=== PATIENT | female | born 1960 | race Two or more races ===

== ENCOUNTER → 2016-05-22 | Outpatient (CLI) | payer OTHER ==
--- NOTE | 2016-05-23 09:26 | RADRPT ---
PROCEDURE: XR Knee. CLINICAL INDICATION: Right knee pain. TECHNIQUE: 4 views of the right knee are available for review. COMPARISON: None available FINDINGS: The osseous structures, articular spaces, and surrounding soft tissues of the right knee are all unr emarkable. No acute fracture or dislocation is seen. No radiopaque foreign body is identified. Al ignment is anatomic. IMPRESSION: 1. Unremarkable right knee x-ray series. 2. No acute fracture or dislocation is seen. RPTAT: QQ .Richard Todd MD, MD Date Time Electronically viewed and signed by .Richard Todd MD, MD on 05/23/2016 09:25 .R/
== END | disposition home or self-care (01) ==
LOC: HKI 09:28
PROVIDERS: ATTEND Orthopaedic Surgery
DX: S83.231D Complex tear of medial meniscus, current injury, right knee, subsequent encounter (principal); M25.561 Pain in right knee; E66.9 Obesity, unspecified; Z88.0 Allergy status to penicillin; Z79.82 Long term (current) use of aspirin
CPT/HCPCS: 73564; Z7500; G0463